=== PATIENT | female | born 1955 | race American Indian/Alaskan Native ===

== ENCOUNTER 2017-09-18 14:36 | Outpatient (CLI) | payer MEDICARE ==
--- NOTE | 2017-09-18 15:29 | XRay Report ---
CHEST 2 VIEWS INDICATION: Cough. COMPARISON: 06/19/2015 FINDINGS: Frontal and lateral chest radiographs demonstrate interval bilateral upper extremity PICC removal. Stable cholecystectomy clips. Normal cardiomediastinal silhouette. Clear lungs. Mild multilevel imaged spinal degenerative changes with suspected sickle cell changes along the spine and bilateral humeral heads. CONCLUSION: No acute chest process in this patient with sickle cell suspected, as described. Please correlate. Thank you for the opportunity to participate in this patient's care.
== END 2017-09-18 14:37 | disposition home or self-care (01) ==
LOC: XRAY 14:36
PROVIDERS: ATTEND Internal Medicine Hematology & Oncology
DX: R05 Cough (principal); M47.894 Other spondylosis, thoracic region; E78.00 Pure hypercholesterolemia, unspecified; D64.9 Anemia, unspecified; Z90.49 Acquired absence of other specified parts of digestive tract; Z98.890 Other specified postprocedural states
CPT/HCPCS: 71046

== ENCOUNTER 2017-09-21 09:53 | Inpatient (IN) | payer MEDICARE ==
[2017-09-21 12:09] LABS: BUN/Creatinine Ratio 16; Blood Urea Nitrogen 13 mg/dL (7-17); Calcium 10.8 mg/dL (8.4-10.2); Hemolysis Index 66
[2017-09-21 14:07] LABS: Hematocrit 23.6 % (30.3-42.9); Hemoglobin 7.8 gm/dl (10.1-14.3); Mean Corpuscular HGB Conc 33 % (30-34); Mean Corpuscular Hemoglobin 27 pg (28-32); Mean Corpuscular Volume 83 fl (79-97); Platelet Count 437 K/mm3 (140-440); Red Blood Count 2.84 M/mm3 (3.65-5.03); Red Cell Distribution Width 17.8 % (13.2-15.2)
[2017-09-21 15:22] LABS: Band Neutrophils # (Manual) 0.4 K/mm3; Total Cells Counted 100
[2017-09-21 15:23] LABS: Hypochromasia 1+; Platelet Estimate Consistent w Auto; Sickle Cells 1+; Target Cells 1+
[2017-09-21] MEDS ORDERED: DILAUDID IV ONE (19:36)
[2017-09-21] MEDS ORDERED: TORADOL IV ONE (19:36)
[2017-09-21] MEDS ORDERED: ZOFRAN IV ONE (19:36)
[2017-09-21] MEDS: D5NS 0.2% 1,000 ML IV SCH (20:18)
--- NOTE | 2017-09-21 20:41 | Emergency Department Report ---
ED General Adult HPI - General Chief complaint: Sickle Cell Crisis Stated complaint: SICKLE CELL Time Seen by Provider: 09/21/17 19:30 Source: patient Mode of arrival: Wheelchair Limitations: No Limitations - History of Present Illness Initial comments: 62-year-old female with a past medical history of sickle cell SS, previous pulmonary embolism, previous splenectomy and cholecystectomy presents still complains of pain from her neck down to her spine in the started acutely at 4 AM. Pain is 10/10 intensity and constant. No aggravating or relieving factors. No complaints of fever, chest pain, shortness of breath, or abdominal pain. Patient admits to noncompliance with Coumadin 1 month because she ran out of the prescription. Recently saw her price analyst Dr. Griffin on October 19. Patient has infrequent sickle cell crisis requiring hospitalizations. She does not have a port. Severity scale (0 -10): 10 - Related Data Home Medications Medication Instructions Recorded Confirmed Last Taken RX: HYDROcodone/APAP 7.5-325 1 tab PO Q4-6H PRN 01/10/14 06/11/15 02/20/15 20:00 [[place] 7.5-325 mg TAB] RX: Warfarin [Coumadin] 7.5 mg PO QDAY 06/09/15 06/09/15 1 Day Ago ~06/08/15 Allergies Allergy/AdvReac Type Severity Reaction Status Date / Time nalbuphine HCl [From Nubain] Allergy Hives Verified 01/11/14 10:50 oak Allergy COUGHING,IT Unverified 09/18/17 14:39 MARCIA LAY ED Review of Systems ROS: Stated complaint: SICKLE CELL Other details as noted in HPI Comment: All other systems reviewed and negative ED Past Medical Hx - Past Medical History Hx Congestive Heart Failure: No Hx Diabetes: No Hx Deep Vein Thrombosis: (Hx PE) Hx Pulmonary Embolism: Yes Hx Sickle Cell Disease: Yes Hx Asthma: No Hx COPD: No Hx Tuberculosis: No Additional medical history: Depression in the past according to old chart - Surgical History Hx Pacemaker: No Hx Internal Defibrillator: No Hx Cholecystectomy: Yes Additional Surgical History: spleenectomy. tubal ligation. left digit amputation. PICC line - Social History Smoking Status: Unknown if ever smoked Substance Use Type: None - Medications Home Medications: Home Medications Medication Instructions Recorded Confirmed Last Taken Type RX: HYDROcodone/APAP 7.5-325 1 tab PO Q4-6H PRN 01/10/14 06/11/15 02/20/15 20: 00 History [[place] 7.5-325 mg TAB] RX: Warfarin [Coumadin] 7.5 mg PO QDAY 06/09/15 06/09/15 1 Day Ago History ~06/08/15 ED Physical Exam - General Limitations: No Limitations - Other Other exam information: General: No limitations, patient is alert in no acute distress Head exam: Atraumatic, normocephalic Eyes exam: Normal appearance ENT: Moist mucous membrane, normal oropharynx Neck exam: Normal inspection, full range of motion, no meningismus midleine Neck tenderness down spine to back Respiratory exam: Clear to auscultation bilateral, no wheezes, rales, crackles Cardiovascular: Normal rate and rhythm, normal heart sounds Abdomen: Soft, nondistended, luq scar, nontender, with normal bowel sounds, no rebound, or guarding Extremity: Full range of motion normal inspection no deformity Back: Normal Inspection, full range of motion, some midline tenderness Neurologic: Alert, oriented x3, cranial nerves intact, no motor or sensory deficit Psychiatric: normal affect, normal mood Skin: Warm, dry, intact ED Course Vital Signs 09/21/17 09/21/17 09/21/17 11:36 16:41 16:45 Temperature 98.2 F Pulse Rate 60 Respiratory 20 Rate Blood Pressure 187/109 120/65 130/55 O2 Sat by Pulse 97 100 Oximetry 09/21/17 09/21/17 09/21/17 16:52 17:00 17:15 Temperature Pulse Rate Respiratory Rate Blood Pressure 124/71 124/71 O2 Sat by Pulse 97 100 100 Oximetry 09/21/17 09/21/17 09/21/17 17:31 17:45 18:01 Temperature Pulse Rate Respiratory Rate Blood Pressure 119/44 119/44 119/44 O2 Sat by Pulse 100 100 100 Oximetry 09/21/17 09/21/17 18:15 18:31 Temperature Pulse Rate Respiratory Rate Blood Pressure 119/44 119/44 O2 Sat by Pulse 100 35 L Oximetry - Consultations Consultation #1: 09/21/17 20:40 case d/w Dr Griffin, will consult ED Medical Decision Making - Lab Data Result diagrams: 09/21/17 14:00 04/02/18 11:42 Lab Results 09/21/17 09/21/17 Range/Units 11:42 14:00 WBC 20.2 H (4.5-11.0) K/mm3 RBC 2.84 L (3.65-5.03) M/mm3 Hgb 7.8 L (10.1-14.3) gm/dl Hct 23.6 L (30.3-42.9) % MCV 83 (79-97) fl MCH 27 L (28-32) pg MCHC 33 (30-34) % RDW 17.8 H (13.2-15.2) % Plt Count 437 (140-440) K/mm3 Add Manual Diff Complete Total Counted 100 Seg Neuts % (Manual) 79.0 H (40.0-70.0) % Band Neutrophils % 2.0 % Lymphocytes % (Manual) 6.0 L (13.4-35.0) % Reactive Lymphs % (Man) 0 % Monocytes % (Manual) 10.0 H (0.0-7.3) % Eosinophils % (Manual) 2.0 (0.0-4.3) % Basophils % (Manual) 1.0 (0.0-1.8) % Metamyelocytes % 0 % Myelocytes % 0 % Promyelocytes % 0 % Blast Cells % 0 % Nucleated RBC % 7.0 H (0.0-0.9) % Seg Neutrophils # Man 15.5 H (1.8-7.7) K/mm3 Band Neutrophils # 0.4 K/mm3 Lymphocytes # (Manual) 1.2 (1.2-5.4) K/mm3 Abs React Lymphs (Man) 0.0 K/mm3 Monocytes # (Manual) 2.0 H (0.0-0.8) K/mm3 Eosinophils # (Manual) 0.4 (0.0-0.4) K/mm3 Basophils # (Manual) 0.2 H (0.0-0.1) K/mm3 Metamyelocytes # 0.0 K/mm3 Myelocytes # 0.0 K/mm3 Promyelocytes # 0.0 K/mm3 Blast Cells # 0.0 K/mm3 WBC Morphology Not Reportable Hypersegmented Neuts Not Reportable Hyposegmented Neuts Not Reportable Hypogranular Neuts Not Reportable Smudge Cells Not Reportable Toxic Granulation Not Reportable Toxic Vacuolation Not Reportable Dohle Bodies Not Reportable Pelger-Huet Anomaly Not Reportable Josemanuel Rods Not Reportable Platelet Estimate Consistent w auto Clumped Platelets Not Reportable Plt Clumps, EDTA Not Reportable Large Platelets Not Reportable Giant Platelets Not Reportable Platelet Satelliting Not Reportable Plt Morphology Comment Not Reportable RBC Morphology Not Reportable Dimorphic RBCs Not Reportable Polychromasia Not Reportable Hypochromasia 1+ Poikilocytosis Not Reportable Anisocytosis Not Reportable Microcytosis Not Reportable Macrocytosis Not Reportable Spherocytes Not Reportable Pappenheimer Bodies Not Reportable Sickle Cells 1+ Target Cells 1+ Tear Drop Cells Not Reportable Ovalocytes Not Reportable Helmet Cells Not Reportable Maguire-Eagan Bodies Not Reportable Fenton Rings Not Reportable Mcgehee Cells Not Reportable Bite Cells Not Reportable Crenated Cell Not Reportable Elliptocytes Not Reportable Acanthocytes (Spur) Not Reportable Rouleaux Not Reportable Hemoglobin C Crystals Not Reportable Schistocytes Not Reportable Malaria parasites Not Reportable Percent Retic 8.94 H (0.78-2.58) % Nikunj Bodies Not Reportable Hem Pathologist Commnt No Sodium 135 L (137-145) mmol/L Potassium 4.7 (3.6-5.0) mmol/L Chloride 100.4 (98-107) mmol/L Carbon Dioxide 20 L (22-30) mmol/L Anion Gap 19 mmol/L BUN 13 (7-17) mg/dL Creatinine 0.8 (0.7-1.2) mg/dL Estimated GFR > 60 ml/min BUN/Creatinine Ratio 16 % Glucose 119 H (65-100) mg/dL Calcium 10.8 H (8.4-10.2) mg/dL - Medical Decision Making Patient be admitted to hospital for acute sickle cell crisis. Patient has significant leukocytosis but no source of infection identified. Blood cultures pending. She does not report. Case discussed with Dr. Griffin We'll continue to manage pain or hydrate and follow. Patient medicine noncompliance with Coumadin 1 month. IN The ED she is treated with Dilaudid, Zofran, Toradol, and been with improvement in pain. IVF in progress - Differential Diagnosis sickle cell crisis, aplastic crisis, osteomyelitis, anemia, infection Critical Care Time: No Critical care attestation.: If time is entered above; I have spent that time in minutes in the direct care of this critically ill patient, excluding procedure time. ED Disposition Clinical Impression: Sickle cell crisis, Leukocytosis, Sickle cell anemia, Noncompliance with medication regimen Disposition: OP ADMIT IP TO THIS HOSP Is pt being admited?: Yes Condition: Stable Time of Disposition: 20:41 (Dr Mcgarry/hosp)
[2017-09-21] MEDS ORDERED: MILK OF MAGNESIA PO PRN (22:09)
[2017-09-21] MEDS ORDERED: MORPHINE PO PRN (22:09)
[2017-09-21] MEDS ORDERED: DULCOLAX PR PRN (22:09)
[2017-09-21] MEDS ORDERED: BENADRYL PO PRN (22:09)
--- NOTE | 2017-09-21 22:12 | History and Physical Report ---
History of Present Illness Date of examination: 09/21/17 Date of admission: 09/21/17 21:59 History of present illness: 62-year-old woman with a history of sickle cell, pulmonary emboli, depression was brought to the emergency room with complaints of pain from the lower neck and weight onto her tailbone which she is only able to describe, INTENSITY 8/10 , no radiation and she cannot identify exacerbating or factor, relieved with IV pain medication to the emergency room. No fever chills, nausea vomiting Review Of Systems: Constitutional: no weight loss Ears, eyes, nose, mouth and throat: no nasal congestion, no nasal discharge, no sinus pressure, blurry vision, diplopia Neck: No neck pain or rigidity. Cardiovascular: no chest pain, orthopnea, palpitations Respiratory: No shortness of breath, cough Gastrointestinal: no abdominal pain, hematochezia Genitourinary : no hematuria Musculoskeletal: no muscle ache Integumentary: no rash, no pruritis Neurological: no parathesias, focal weakness Endocrine: no cold or heat intolerance, no polyuria or polydipsia Hematologic/Lymphatic: no easy bruising, no easy bleeding, no gland swelling Allergic/Immunologic: no urticaria, no angioedema. PAST MEDICAL HISTORY; depression, sickle cell, pulmonary emboli PAST SURGICAL HISTORY: Cholecystectomy, tubal ligation, splenectomy, left digit amputation SOCIAL HISTORY: Denies local continue current management FAMILY HISTORY: Sickle cell Medications and Allergies Allergies Allergy/AdvReac Type Severity Reaction Status Date / Time nalbuphine HCl [From Nubain] Allergy Hives Verified 01/11/14 10:50 oak Allergy COUGHING,IT Verified 09/21/17 22:48 ROSANNE,SINUS Home Medications Medication Instructions Recorded Confirmed Last Taken Type HYDROcodone/APAP 7.5-325 [[place] 1 tab PO Q4-6H PRN 01/10/14 09/21/17 1 Month Ago History 7.5-325 mg TAB] ~08/21/17 Warfarin [Coumadin] 7.5 mg PO QDAY 06/09/15 09/21/17 1 Month Ago History ~08/21/17 Active Meds: Active Medications Dextrose/Sodium Chloride (D5ns 0.2%) 1,000 mls @ 250 mls/hr IV DIRECT TERESA Last Admin: 09/21/17 20:18 Dose: 250 mls/hr Exam - Physical Exam Narrative exam: Physical exam - Constitutional Vitals: Temp Pulse Resp BP Pulse Ox 98.2 F 86 20 119/61 97 09/21/17 11:36 09/21/17 21:54 09/21/17 11:36 09/21/17 21:45 09/21/17 21:45 Results - Labs CBC & Chem 7: 09/21/17 14:00 09/21/17 11:42 Labs: Abnormal lab results 09/21/17 09/21/17 Range/Units 11:42 14:00 WBC 20.2 H (4.5-11.0) K/mm3 RBC 2.84 L (3.65-5.03) M/mm3 Hgb 7.8 L (10.1-14.3) gm/dl Hct 23.6 L (30.3-42.9) % MCH 27 L (28-32) pg RDW 17.8 H (13.2-15.2) % Seg Neuts % (Manual) 79.0 H (40.0-70.0) % Lymphocytes % (Manual) 6.0 L (13.4-35.0) % Monocytes % (Manual) 10.0 H (0.0-7.3) % Nucleated RBC % 7.0 H (0.0-0.9) % Seg Neutrophils # Man 15.5 H (1.8-7.7) K/mm3 Monocytes # (Manual) 2.0 H (0.0-0.8) K/mm3 Basophils # (Manual) 0.2 H (0.0-0.1) K/mm3 Percent Retic 8.94 H (0.78-2.58) % Sodium 135 L (137-145) mmol/L Carbon Dioxide 20 L (22-30) mmol/L Glucose 119 H (65-100) mg/dL Calcium 10.8 H (8.4-10.2) mg/dL Assessment and Plan Assessment SIRS Sickle cell crisis Pulmonary emboli on Coumadin Depression Plan Admit to medicine I start IV fluids, IV narcotics Patient's Retail Management Trainee is consulted to see the patient DVT prophylaxis, check PT/INR
[2017-09-22] MEDS: cefTRIAXone 1 GM in NACL 0.9% 20 ML IV SCH ×2 (00:06→22:26)
[2017-09-22 00:46] LABS: INR 1.03 (0.87-1.13)
[2017-09-22 00:47] LABS: Partial Thromboplastin Time 30.4 Sec. (24.2-36.6)
[2017-09-22] MEDS: D5NS 0.2% 1,000 ML IV SCH ×4 (01:29→22:25)
[2017-09-22] MEDS: DILAUDID IV PRN ×6 (01:30→22:28)
[2017-09-22] MEDS: TYLENOL PO PRN ×3 (05:02→18:34)
[2017-09-22] MEDS: OxyCONTIN PO SCH ×3 (05:04→22:27)
[2017-09-22 08:02] LABS: Hematocrit 22.8 % (30.3-42.9); Hemoglobin 7.6 gm/dl (10.1-14.3); Mean Corpuscular HGB Conc 34 % (30-34); Mean Corpuscular Hemoglobin 28 pg (28-32); Mean Corpuscular Volume 83 fl (79-97); Platelet Count 405 K/mm3 (140-440); Red Blood Count 2.75 M/mm3 (3.65-5.03); Red Cell Distribution Width 17.3 % (13.2-15.2)
[2017-09-22 08:57] LABS: Band Neutrophils # (Manual) 0.5 K/mm3; Basophils % (Manual) 0 % (0.0-1.8); Eosinophils % (Manual) 0 % (0.0-4.3); Total Cells Counted 100
[2017-09-22 08:58] LABS: Anisocytosis 1+; Hypochromasia 1+; Ovalocytes 1+; Poikilocytosis 1+; Sickle Cells 1+; Stomatocytes 1+; Target Cells 1+; Tear Drop Cells 2+
[2017-09-22] MEDS: THERAGRAN Tab PO SCH (09:29)
[2017-09-22] MEDS: FOLVITE PO SCH (09:29)
[2017-09-22 09:41] LABS: BUN/Creatinine Ratio 14; Blood Urea Nitrogen 11 mg/dL (7-17); Hemolysis Index 9
[2017-09-22] MEDS: COUMADIN PO SCH (16:41)
--- NOTE | 2017-09-22 19:03 | Progress Note ---
Assessment and Plan SIRS, likely from sickle cell crisis Sickle cell crisis, monitor H&H Pulmonary emboli on Coumadin Depression, stable Plan: Continue aggressive hydration with IV fluids, IV narcotics, consulted insurance case manager Monitor H&H, PT INR, reticulocyte count and LDH Continue to provide supportive care Physical exam: General appearance: Present: mild distress - EENT Eyes: Present: PERRL ENT: hearing intact, clear oral mucosa - Neck Neck: Present: supple, normal ROM - Respiratory Respiratory: bilateral: diminished - Cardiovascular Heart Sounds: Present: S1 & S2. Absent: rub, click - Extremities Extremities: pulses symmetrical, No edema Peripheral Pulses: within normal limits - Abdominal General gastrointestinal: Present: soft, non-tender, non-distended, normal bowel sounds - Integumentary Integumentary: Present: clear, warm, dry - Musculoskeletal Musculoskeletal: gait normal, strength equal bilaterally - Psychiatric Psychiatric: appropriate mood/affect, intact judgment & insight - Neurologic Neurologic: CNII-XII intact, moves all extremities Subjective Date of service: 09/22/17 Interval history: Patient seen and examined. Medical records and medication list reviewed. No acute event overnight noted by the RN. Patient denies any chest pain or difficulty breathing. Patient is tolerating diet but poor appetite. Complaints of severe back pain hip pain and leg pain Discussed plan of care at bedside with patient. Objective - Constitutional Vitals: Vital Signs - 12hr 09/22/17 09/22/17 07:44 12:59 Temperature 101.2 F H 100.3 F H Pulse Rate 97 H Respiratory 14 18 Rate Blood Pressure 101/54 107/37 [Left] O2 Sat by Pulse 97 94 Oximetry - Labs CBC & Chem 7: 09/23/17 12:47 09/22/17 07:17 Labs: Abnormal lab results 09/21/17 09/22/17 09/22/17 Range/Units 14:00 07:17 07:17 WBC 20.2 H 24.4 H (4.5-11.0) K/mm3 RBC 2.84 L 2.75 L (3.65-5.03) M/mm3 Hgb 7.8 L 7.6 L (10.1-14.3) gm/dl Hct 23.6 L 22.8 L (30.3-42.9) % MCH 27 L (28-32) pg RDW 17.8 H 17.3 H (13.2-15.2) % Seg Neuts % (Manual) 79.0 H 89.0 H (40.0-70.0) % Lymphocytes % (Manual) 6.0 L 5.0 L (13.4-35.0) % Monocytes % (Manual) 10.0 H (0.0-7.3) % Nucleated RBC % 7.0 H 11.0 H (0.0-0.9) % Seg Neutrophils # Man 15.5 H 21.7 H (1.8-7.7) K/mm3 Monocytes # (Manual) 2.0 H 1.0 H (0.0-0.8) K/mm3 Basophils # (Manual) 0.2 H (0.0-0.1) K/mm3 Percent Retic 8.94 H 8.51 H (0.78-2.58) % Sodium (137-145) mmol/L Carbon Dioxide (22-30) mmol/L Glucose (65-100) mg/dL Lactate Dehydrogenase 613 H (91-180) units/L 09/22/17 Range/Units 07:17 WBC (4.5-11.0) K/mm3 RBC (3.65-5.03) M/mm3 Hgb (10.1-14.3) gm/dl Hct (30.3-42.9) % MCH (28-32) pg RDW (13.2-15.2) % Seg Neuts % (Manual) (40.0-70.0) % Lymphocytes % (Manual) (13.4-35.0) % Monocytes % (Manual) (0.0-7.3) % Nucleated RBC % (0.0-0.9) % Seg Neutrophils # Man (1.8-7.7) K/mm3 Monocytes # (Manual) (0.0-0.8) K/mm3 Basophils # (Manual) (0.0-0.1) K/mm3 Percent Retic (0.78-2.58) % Sodium 134 L (137-145) mmol/L Carbon Dioxide 21 L (22-30) mmol/L Glucose 113 H (65-100) mg/dL Lactate Dehydrogenase (91-180) units/L
--- NOTE | 2017-09-22 22:04 | Consultation ---
History of Present Illness - Reason for Consult Consult date: 09/22/17 SCD/pain crisis. Requesting physician: MEME GANN - History of Present Illness Thank you for this consult, patient seen/examined, slight lethargic, record reviewed. Patient seen last thursday in the office, and sent home with oral abx, and to do CXR. she did not want an admission at that time, but presented to the ER, 3days later, and admitted for sxs management. I had spoken to DR Gann in the ER last night, and gave recommendations/, for cultures, IV ABX, until culture resulted.By tomorrow, her IV pain meds could be reduced, as patient does not tolerate pain meds well.She will be ok with Dilaudid 1mg instead.. Past History Past Medical History: anemia, pulmonary embolism Medications and Allergies Allergies Allergy/AdvReac Type Severity Reaction Status Date / Time nalbuphine HCl [From Nubain] Allergy Hives Verified 01/11/14 10:50 oak Allergy COUGHING,IT Verified 09/21/17 22:48 ROSANNE,SINUS Home Medications Medication Instructions Recorded Confirmed Last Taken Type HYDROcodone/APAP 7.5-325 [[place] 1 tab PO Q4-6H PRN 01/10/14 09/21/17 1 Month Ago History 7.5-325 mg TAB] ~08/21/17 Warfarin [Coumadin] 7.5 mg PO QDAY 06/09/15 09/21/17 1 Month Ago History ~08/21/17 Active Meds: Active Medications Acetaminophen (Tylenol) 650 mg PO Q4H PRN PRN Reason: Pain, Mild (1-3) Last Admin: 09/22/17 18:34 Dose: 650 mg Bisacodyl (Dulcolax) 10 mg DC QDAY PRN PRN Reason: Constipation unrelieved by MOM Diphenhydramine HCl (Benadryl) 25 mg PO Q6H PRN PRN Reason: Itching Folic Acid (Folvite) 1 mg PO QDAY TERESA Last Admin: 09/22/17 09:29 Dose: 1 mg Hydromorphone HCl (Dilaudid) 2 mg IV Q2H PRN PRN Reason: Pain , Severe (7-10) Last Admin: 09/22/17 16:36 Dose: 2 mg Dextrose/Sodium Chloride (D5ns 0.2%) 1,000 mls @ 250 mls/hr IV DIRECT [facility] Last Admin: 09/22/17 13:03 Dose: 250 mls/hr Ceftriaxone Sodium 1 gm/ (Sodium Chloride) 20 mls @ 2 mls/min IV Q24HR@2200 [facility] Last Admin: 09/22/17 00:06 Dose: 2 mls/min Magnesium Hydroxide (Milk Of Magnesia) 30 ml PO Q4H PRN PRN Reason: Constipation Morphine Sulfate (Morphine) 15 mg PO Q4H PRN PRN Reason: Pain, Moderate (4-6) Multivitamins (Theragran Tab) 1 each PO QDAY [facility] Last Admin: 09/22/17 09:29 Dose: 1 each Ondansetron HCl (Zofran) 4 mg IV Q8H PRN PRN Reason: Nausea And Vomiting Oxycodone HCl (Oxycontin) 20 mg PO Q8HR [facility] Last Admin: 09/22/17 14:30 Dose: Not Given Senna (Senokot) 17.2 mg PO QHS [facility] Warfarin Sodium (Coumadin) 7.5 mg PO QDAY@1700 [facility]; Protocol Last Admin: 09/22/17 16:41 Dose: 7.5 mg Review of Systems Constitutional: fatigue, weakness Breasts: deferred Exam - Constitutional Vitals: Temp Pulse Resp BP Pulse Ox 100.2 F H 101 H 16 103/49 95 09/22/17 19:34 09/22/17 19:34 09/22/17 19:34 09/22/17 19:34 09/22/17 20:26 General appearance: Present: mild distress - EENT Eyes: Present: PERRL ENT: hearing intact, clear oral mucosa - Neck Neck: Present: supple, normal ROM - Respiratory Respiratory: bilateral: diminished - Cardiovascular Heart Sounds: Present: S1 & S2. Absent: rub, click - Extremities Extremities: pulses symmetrical, No edema Peripheral Pulses: within normal limits - Abdominal General gastrointestinal: Present: soft, non-tender, non-distended, normal bowel sounds Female genitourinary: Present: deferred - Rectal Rectal Exam: deferred - Integumentary Integumentary: Present: clear, warm, dry - Musculoskeletal Musculoskeletal: gait normal, strength equal bilaterally - Psychiatric Psychiatric: appropriate mood/affect, intact judgment & insight - Neurologic Neurologic: CNII-XII intact, moves all extremities Results - Labs CBC & Chem 7: 09/22/17 07:17 09/22/17 07:17 Labs: Abnormal lab results 09/22/17 09/22/17 09/22/17 Range/Units 07:17 07:17 07:17 WBC 24.4 H (4.5-11.0) K/mm3 RBC 2.75 L (3.65-5.03) M/mm3 Hgb 7.6 L (10.1-14.3) gm/dl Hct 22.8 L (30.3-42.9) % RDW 17.3 H (13.2-15.2) % Seg Neuts % (Manual) 89.0 H (40.0-70.0) % Lymphocytes % (Manual) 5.0 L (13.4-35.0) % Nucleated RBC % 11.0 H (0.0-0.9) % Seg Neutrophils # Man 21.7 H (1.8-7.7) K/mm3 Monocytes # (Manual) 1.0 H (0.0-0.8) K/mm3 Percent Retic 8.51 H (0.78-2.58) % Sodium 134 L (137-145) mmol/L Carbon Dioxide 21 L (22-30) mmol/L Glucose 113 H (65-100) mg/dL Lactate Dehydrogenase 613 H (91-180) units/L Assessment and Plan - Patient Problems (1) Leukocytosis Current Visit: Yes Status: Acute Plan to address problem: w/up in progress. (2) Noncompliance with medication regimen Current Visit: Yes Status: Acute Plan to address problem: i have d/w patient in the office about her gross non compliances. (3) Sickle cell crisis Current Visit: Yes Status: Acute Plan to address problem: pain control, hydration. (4) Sickle cell anemia Current Visit: Yes Status: Chronic Plan to address problem: monitor labs.
[2017-09-22] MEDS ORDERED: ROCEPHIN/NS 1 GM/50 ML 1 GM/50 ML BAG IV SCH (22:09)
[2017-09-22] MEDS: SENOKOT PO SCH (22:25)
[2017-09-23] MEDS: D5NS 0.2% 1,000 ML IV SCH ×3 (02:40→14:20)
[2017-09-23] MEDS: DILAUDID IV PRN ×3 (07:08→17:07)
[2017-09-23] MEDS: OxyCONTIN PO SCH ×2 (07:20→14:20)
[2017-09-23] MEDS: THERAGRAN Tab PO SCH (09:29)
[2017-09-23] MEDS: ZOFRAN IV PRN (09:30)
[2017-09-23] MEDS: FOLVITE PO SCH (09:31)
[2017-09-23 13:36] LABS: Hematocrit 22.1 % (30.3-42.9); Hemoglobin 7.3 gm/dl (10.1-14.3); Mean Corpuscular HGB Conc 33 % (30-34); Mean Corpuscular Hemoglobin 28 pg (28-32); Mean Corpuscular Volume 83 fl (79-97); Platelet Count 379 K/mm3 (140-440); Red Blood Count 2.65 M/mm3 (3.65-5.03); Red Cell Distribution Width 17.9 % (13.2-15.2)
[2017-09-23 13:40] LABS: INR 1.2 (0.87-1.13)
[2017-09-23 14:29] LABS: Band Neutrophils # (Manual) 0.2 K/mm3; Basophils % (Manual) 0 % (0.0-1.8); Total Cells Counted 100
[2017-09-23 14:30] LABS: Anisocytosis 2+
[2017-09-23 14:31] LABS: Poikilocytosis 2+; Sickle Cells 1+
[2017-09-23 14:32] LABS: Helmet Cells Rare; Target Cells 1+
[2017-09-23 14:33] LABS: Ovalocytes 1+; Tear Drop Cells Few
[2017-09-23 14:34] LABS: Platelet Estimate Cons; Stomatocytes Few
[2017-09-23] MEDS: COUMADIN PO SCH (17:05)
[2017-09-23] MEDS: TYLENOL PO PRN (17:06)
--- NOTE | 2017-09-23 17:28 | Progress Note ---
Assessment and Plan Sepsis, likely from b/l PNA, POA Sickle cell crisis, monitor H&H Acute b/l PNA likely CA, POA Pulmonary emboli on Coumadin Depression, stable Plan: Continue aggressive hydration with IV fluids, IV narcotics, consulted zone supervisor firearms Monitor H&H, PT INR, reticulocyte count and LDH Continue to provide supportive care, cont abx Chest x-ray showed b.l infiltrates Physical exam: General appearance: Present: mild distress - EENT Eyes: Present: PERRL ENT: hearing intact, clear oral mucosa - Neck Neck: Present: supple, normal ROM - Respiratory Respiratory: bilateral: diminished - Cardiovascular Heart Sounds: Present: S1 & S2. Absent: rub, click - Extremities Extremities: pulses symmetrical, No edema Peripheral Pulses: within normal limits - Abdominal General gastrointestinal: Present: soft, non-tender, non-distended, normal bowel sounds - Integumentary Integumentary: Present: clear, warm, dry - Musculoskeletal Musculoskeletal: gait normal, strength equal bilaterally - Psychiatric Psychiatric: appropriate mood/affect, intact judgment & insight - Neurologic Neurologic: CNII-XII intact, moves all extremities Subjective Date of service: 09/23/17 Interval history: Patient seen and examined. Medical records and medication list reviewed. No acute event overnight noted by the RN. Patient denies any chest pain or difficulty breathing. Patient is tolerating diet but poor appetite. Complaints of back pain hip pain and leg pain, but improving Discussed plan of care at bedside with patient. Objective - Constitutional Vitals: Vital Signs - 12hr 09/23/17 09/23/17 09/23/17 08:27 11:55 14:56 Temperature 100.2 F H 101.2 F H 101.3 F H Pulse Rate 100 H 98 H 110 H Respiratory 14 16 14 Rate Blood Pressure 108/56 107/63 107/56 [Left] O2 Sat by Pulse 100 98 96 Oximetry - Labs CBC & Chem 7: 09/24/17 11:10 09/22/17 07:17 Labs: Abnormal lab results 09/23/17 09/23/17 09/23/17 Range/Units 09:42 12:47 12:47 WBC 14.9 H (4.5-11.0) K/mm3 RBC 2.65 L (3.65-5.03) M/mm3 Hgb 7.3 L (10.1-14.3) gm/dl Hct 22.1 L (30.3-42.9) % RDW 17.9 H (13.2-15.2) % Seg Neuts % (Manual) 80.0 H (40.0-70.0) % Lymphocytes % (Manual) 9.0 L (13.4-35.0) % Monocytes % (Manual) 8.0 H (0.0-7.3) % Nucleated RBC % 10.0 H (0.0-0.9) % Seg Neutrophils # Man 12.1 H (1.8-7.7) K/mm3 Monocytes # (Manual) 1.2 H (0.0-0.8) K/mm3 Percent Retic 7.22 H (0.78-2.58) % PT 15.9 H (12.2-14.9) Sec. INR 1.20 H (0.87-1.13) Lactate Dehydrogenase 616 H (91-180) units/L
--- NOTE | 2017-09-23 22:52 | XRay Report ---
FINAL REPORT EXAM: XR CHEST 1V AP HISTORY: possible pneumonia TECHNIQUE: Chest AP PRIORS: None. FINDINGS: There is streaky opacity present within the left lower lobe and at the right perihilar region as well as the right lung base. Pulmonary vasculature is unremarkable. Cardiac and mediastinal contours are unremarkable. No evidence for pleural effusion. IMPRESSION: Bilateral lower lobe infiltrate/atelectasis may reflect pneumonia
--- NOTE | 2017-09-23 23:54 | Progress Note ---
Assessment and Plan - Patient Problems (1) Leukocytosis Current Visit: Yes Status: Acute Plan to address problem: w/up in progress. this is probably due to her PNA. (2) Noncompliance with medication regimen Current Visit: Yes Status: Acute Plan to address problem: i have d/w patient in the office about her gross non compliances. (3) Sickle cell crisis Current Visit: Yes Status: Acute Plan to address problem: pain control, hydration. (4) Sickle cell anemia Current Visit: Yes Status: Chronic Plan to address problem: monitor labs. Subjective Date of service: 09/23/17 Interval history: Patient seen/examined, records /labs reviewed, case d/w patient. CXY reveals possible PNA.Patient has lost her IV, and will bneed a picc line as she will needit for very needed tx. Objective - Constitutional Vitals: Vital Signs - 12hr 09/23/17 09/23/17 09/23/17 11:55 14:56 19:22 Temperature 101.2 F H 101.3 F H 98.5 F Pulse Rate 98 H 110 H 97 H Respiratory 16 14 20 Rate Blood Pressure 83/49 Blood Pressure 107/63 107/56 [Left] O2 Sat by Pulse 98 96 78 L Oximetry General appearance: Present: mild distress - EENT Eyes: PERRL, EOM intact ENT: hearing intact, clear oral mucosa Ears: bilateral: normal - Neck Neck: supple, normal ROM - Respiratory Respiratory: bilateral: diminished - Breasts Breasts: deferred - Cardiovascular Rhythm: regular Heart Sounds: Present: S1 & S2. Absent: gallop, rub Extremities: pulses intact, No edema, normal color, Full ROM - Gastrointestinal General gastrointestinal: Present: soft, non-tender, non-distended, normal bowel sounds Rectal Exam: deferred - Genitourinary Female genitourinary: deferred - Integumentary Integumentary: clear, warm, dry - Musculoskeletal Musculoskeletal: 1, strength equal bilaterally - Neurologic Neurologic: moves all extremities - Psychiatric Psychiatric: memory intact, appropriate mood/affect, intact judgment & insight - Labs CBC & Chem 7: 09/23/17 12:47 09/22/17 07:17 Labs: Abnormal lab results 09/23/17 09/23/17 09/23/17 Range/Units 09:42 12:47 12:47 WBC 14.9 H (4.5-11.0) K/mm3 RBC 2.65 L (3.65-5.03) M/mm3 Hgb 7.3 L (10.1-14.3) gm/dl Hct 22.1 L (30.3-42.9) % RDW 17.9 H (13.2-15.2) % Seg Neuts % (Manual) 80.0 H (40.0-70.0) % Lymphocytes % (Manual) 9.0 L (13.4-35.0) % Monocytes % (Manual) 8.0 H (0.0-7.3) % Nucleated RBC % 10.0 H (0.0-0.9) % Seg Neutrophils # Man 12.1 H (1.8-7.7) K/mm3 Monocytes # (Manual) 1.2 H (0.0-0.8) K/mm3 Percent Retic 7.22 H (0.78-2.58) % PT 15.9 H (12.2-14.9) Sec. INR 1.20 H (0.87-1.13) Lactate Dehydrogenase 616 H (91-180) units/L
[2017-09-24] MEDS: SENOKOT PO SCH ×2 (02:04→22:48)
[2017-09-24] MEDS: OxyCONTIN PO SCH ×5 (02:05→23:36)
[2017-09-24] MEDS: TYLENOL PO PRN (02:07)
[2017-09-24] MEDS: cefTRIAXone 1 GM in NACL 0.9% 20 ML IV SCH ×2 (02:09→22:48)
[2017-09-24] MEDS: FOLVITE PO SCH (11:21)
[2017-09-24] MEDS: THERAGRAN Tab PO SCH (11:21)
[2017-09-24 11:22] LABS: Mean Corpuscular HGB Conc 32 % (30-34); Mean Corpuscular Hemoglobin 27 pg (28-32); Mean Corpuscular Volume 83 fl (79-97); Platelet Count 356 K/mm3 (140-440); Red Blood Count 2.27 M/mm3 (3.65-5.03); Red Cell Distribution Width 18.1 % (13.2-15.2)
[2017-09-24] MEDS: DILAUDID IV PRN ×2 (11:22→23:34)
[2017-09-24 11:29] LABS: Hematocrit 18.7 % (30.3-42.9)
[2017-09-24 11:31] LABS: INR 1.86 (0.87-1.13)
[2017-09-24 12:16] LABS: Eosinophils % (Manual) 0 % (0.0-4.3); Total Cells Counted 100
[2017-09-24 12:21] LABS: Anisocytosis 2+; Poikilocytosis 2+
[2017-09-24 12:22] LABS: Ovalocytes 1+; Sickle Cells Few; Stomatocytes Few; Target Cells 2+
[2017-09-24 12:23] LABS: Platelet Estimate Cons; Tear Drop Cells Few
--- NOTE | 2017-09-24 16:34 | Progress Note ---
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 Velázquez before any decision Continue aggressive hydration with IV fluids, IV narcotics, consulted vp [employer] Monitor H&H, PT INR, reticulocyte count and LDH Continue to provide supportive care, cont abx Chest x-ray showed b.l infiltrates Physical exam: General appearance: Present: mild distress - EENT Eyes: Present: PERRL ENT: hearing intact, clear oral mucosa - Neck Neck: Present: supple, normal ROM - Respiratory Respiratory: bilateral: diminished - Cardiovascular Heart Sounds: Present: S1 & S2. Absent: rub, click - Extremities Extremities: pulses symmetrical, No edema Peripheral Pulses: within normal limits - Abdominal General gastrointestinal: Present: soft, non-tender, non-distended, normal bowel sounds - Integumentary Integumentary: Present: clear, warm, dry - Musculoskeletal Musculoskeletal: gait normal, strength equal bilaterally - Psychiatric Psychiatric: appropriate mood/affect, intact judgment & insight - Neurologic Neurologic: CNII-XII intact, moves all extremities Subjective Date of service: 09/24/17 Interval history: Patient seen and examined. Medical records and medication list reviewed. No acute event overnight noted by the RN. Patient denies any chest pain or difficulty breathing. Patient is tolerating diet, Hb dropped to 6.0 today Complaints of back pain hip pain and leg pain, but improving Discussed plan of care at bedside with patient. Objective - Constitutional Vitals: Vital Signs - 12hr 09/24/17 09/24/17 09/24/17 07:54 07:57 15:25 Temperature 98.0 F 100.6 F H Pulse Rate 74 97 H Respiratory 18 18 18 Rate Blood Pressure 96/52 93/52 O2 Sat by Pulse 80 L 88 Oximetry - Labs CBC & Chem 7: 09/24/17 15:00 09/22/17 07:17 Labs: Abnormal lab results 09/24/17 09/24/17 09/24/17 Range/Units 11:10 11:10 11:10 WBC 15.7 H (4.5-11.0) K/mm3 RBC 2.27 L (3.65-5.03) M/mm3 Hgb 6.0 L (10.1-14.3) gm/dl Hct 18.7 L* (30.3-42.9) % MCH 27 L (28-32) pg RDW 18.1 H (13.2-15.2) % Seg Neuts % (Manual) 88.0 H (40.0-70.0) % Lymphocytes % (Manual) 2.0 L (13.4-35.0) % Monocytes % (Manual) 9.0 H (0.0-7.3) % Nucleated RBC % 9.0 H (0.0-0.9) % Seg Neutrophils # Man 13.6 H (1.8-7.7) K/mm3 Lymphocytes # (Manual) 0.3 L (1.2-5.4) K/mm3 Monocytes # (Manual) 1.4 H (0.0-0.8) K/mm3 Basophils # (Manual) 0.2 H (0.0-0.1) K/mm3 Percent Retic 8.51 H (0.78-2.58) % PT 22.6 H (12.2-14.9) Sec. INR 1.86 H (0.87-1.13) Lactate Dehydrogenase 487 H (91-180) units/L 09/24/17 Range/Units 15:00 WBC (4.5-11.0) K/mm3 RBC (3.65-5.03) M/mm3 Hgb 6.0 L (10.1-14.3) gm/dl Hct 18.0 L* (30.3-42.9) % MCH (28-32) pg RDW (13.2-15.2) % Seg Neuts % (Manual) (40.0-70.0) % Lymphocytes % (Manual) (13.4-35.0) % Monocytes % (Manual) (0.0-7.3) % Nucleated RBC % (0.0-0.9) % Seg Neutrophils # Man (1.8-7.7) K/mm3 Lymphocytes # (Manual) (1.2-5.4) K/mm3 Monocytes # (Manual) (0.0-0.8) K/mm3 Basophils # (Manual) (0.0-0.1) K/mm3 Percent Retic (0.78-2.58) % PT (12.2-14.9) Sec. INR (0.87-1.13) Lactate Dehydrogenase (91-180) units/L
[2017-09-24] MEDS: COUMADIN PO SCH (19:18)
--- NOTE | 2017-09-24 23:05 | Progress Note ---
Assessment and Plan - Patient Problems (1) Leukocytosis Current Visit: Yes Status: Acute Plan to address problem: w/up in progress. this is probably due to her PNA. (2) Noncompliance with medication regimen Current Visit: Yes Status: Acute Plan to address problem: i have d/w patient in the office about her gross non compliances. (3) Sickle cell crisis Current Visit: Yes Status: Acute Plan to address problem: pain control, hydration. (4) Sickle cell anemia Current Visit: Yes Status: Chronic Plan to address problem: monitor labs. see notes. Subjective Date of service: 09/24/17 Interval history: Patient seen/examined, records /labs reviewed, case d/w patient. CXY reveals possible PNA.Patient has lost her IV, and will bneed a picc line as she will needit for very needed tx. Patient seen/examined, resting in bed, labs reviewed, HGB 6.0, and will give 1UPRBC. Objective - Constitutional Vitals: Vital Signs - 12hr 09/24/17 09/24/17 15:25 21:08 Temperature 100.6 F H 100.7 F H Pulse Rate 97 H 106 H Respiratory 18 16 Rate Blood Pressure 93/52 104/53 O2 Sat by Pulse 88 87 Oximetry General appearance: Present: mild distress - EENT Eyes: PERRL, EOM intact ENT: hearing intact, clear oral mucosa Ears: bilateral: normal - Neck Neck: supple, normal ROM - Respiratory Respiratory effort: normal Respiratory: bilateral: diminished - Breasts Breasts: deferred - Cardiovascular Rhythm: regular Heart Sounds: Present: S1 & S2. Absent: gallop, rub Extremities: pulses intact, No edema, normal color, Full ROM - Gastrointestinal General gastrointestinal: Present: soft, non-tender, non-distended, normal bowel sounds Rectal Exam: deferred - Genitourinary Female genitourinary: deferred - Integumentary Integumentary: clear, warm, dry - Musculoskeletal Musculoskeletal: 1, strength equal bilaterally - Neurologic Neurologic: moves all extremities - Psychiatric Psychiatric: memory intact, appropriate mood/affect, intact judgment & insight - Labs CBC & Chem 7: 09/24/17 15:00 09/22/17 07:17 Labs: Abnormal lab results 09/24/17 09/24/17 09/24/17 Range/Units 11:10 11:10 11:10 WBC 15.7 H (4.5-11.0) K/mm3 RBC 2.27 L (3.65-5.03) M/mm3 Hgb 6.0 L (10.1-14.3) gm/dl Hct 18.7 L* (30.3-42.9) % MCH 27 L (28-32) pg RDW 18.1 H (13.2-15.2) % Seg Neuts % (Manual) 88.0 H (40.0-70.0) % Lymphocytes % (Manual) 2.0 L (13.4-35.0) % Monocytes % (Manual) 9.0 H (0.0-7.3) % Nucleated RBC % 9.0 H (0.0-0.9) % Seg Neutrophils # Man 13.6 H (1.8-7.7) K/mm3 Lymphocytes # (Manual) 0.3 L (1.2-5.4) K/mm3 Monocytes # (Manual) 1.4 H (0.0-0.8) K/mm3 Basophils # (Manual) 0.2 H (0.0-0.1) K/mm3 Percent Retic 8.51 H (0.78-2.58) % PT 22.6 H (12.2-14.9) Sec. INR 1.86 H (0.87-1.13) Lactate Dehydrogenase 487 H (91-180) units/L 09/24/17 Range/Units 15:00 WBC (4.5-11.0) K/mm3 RBC (3.65-5.03) M/mm3 Hgb 6.0 L (10.1-14.3) gm/dl Hct 18.0 L* (30.3-42.9) % MCH (28-32) pg RDW (13.2-15.2) % Seg Neuts % (Manual) (40.0-70.0) % Lymphocytes % (Manual) (13.4-35.0) % Monocytes % (Manual) (0.0-7.3) % Nucleated RBC % (0.0-0.9) % Seg Neutrophils # Man (1.8-7.7) K/mm3 Lymphocytes # (Manual) (1.2-5.4) K/mm3 Monocytes # (Manual) (0.0-0.8) K/mm3 Basophils # (Manual) (0.0-0.1) K/mm3 Percent Retic (0.78-2.58) % PT (12.2-14.9) Sec. INR (0.87-1.13) Lactate Dehydrogenase (91-180) units/L
[2017-09-24] MEDS ORDERED: NACL 0.9% 500 ML 500 ML IV ONE (23:06)
[2017-09-24] MEDS: ZOFRAN IV PRN (23:34)
[2017-09-24] MEDS: D5NS 0.2% 1,000 ML IV SCH (23:35)
[2017-09-25] MEDS: OxyCONTIN PO SCH ×3 (06:56→22:12)
[2017-09-25] MEDS: D5NS 0.2% 1,000 ML IV SCH ×2 (08:45→18:20)
[2017-09-25] MEDS: THERAGRAN Tab PO SCH ×2 (10:46→10:53)
[2017-09-25] MEDS: FOLVITE PO SCH ×2 (10:46→10:53)
[2017-09-25] MEDS: ZOFRAN IV PRN (12:26)
[2017-09-25] MEDS: DILAUDID IV PRN ×3 (12:27→23:34)
[2017-09-25] MEDS: ZITHROMAX 500 MG in NACL 0.9% 250ML 250 ML IV SCH (12:27)
[2017-09-25] MEDS: cefTRIAXone 1 GM in NACL 0.9% 20 ML IV SCH ×3 (12:28→22:11)
--- NOTE | 2017-09-25 15:35 | Progress Note ---
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 Sepsis, likely from b/l PNA, POA Febrile illness, likley from sepsis Sickle cell crisis, monitor H&H Acute b/l PNA likely CA, POA Pulmonary emboli on Coumadin Depression, stable Plan: s/p 1 unit PRBC transfusion, Continue aggressive hydration with IV fluids, IV narcotics, consulted software quality manager Monitor H&H, PT INR, reticulocyte count and LDH Continue to provide supportive care, cont abx Chest x-ray showed b.l infiltrates, obtain blood cx and UA Physical exam: General appearance: Present: mild distress - EENT Eyes: Present: PERRL ENT: hearing intact, clear oral mucosa - Neck Neck: Present: supple, normal ROM - Respiratory Respiratory: bilateral: diminished - Cardiovascular Heart Sounds: Present: S1 & S2. Absent: rub, click - Extremities Extremities: pulses symmetrical, No edema Peripheral Pulses: within normal limits - Abdominal General gastrointestinal: Present: soft, non-tender, non-distended, normal bowel sounds - Integumentary Integumentary: Present: clear, warm, dry - Musculoskeletal Musculoskeletal: gait normal, strength equal bilaterally - Psychiatric Psychiatric: appropriate mood/affect, intact judgment & insight - Neurologic Neurologic: CNII-XII intact, moves all extremities Subjective Date of service: 09/25/17 Interval history: Patient seen and examined. Medical records and medication list reviewed. No acute event overnight noted by the RN. Patient denies any chest pain or difficulty breathing. Patient is tolerating diet, s/p 1 unit PRBC transfusion spiked fever this am, worried about iron overload Objective - Constitutional Vitals: Vital Signs - 12hr 09/25/17 08:27 Temperature 101.0 F H Respiratory 12 Rate Blood Pressure 92/49 - Labs CBC & Chem 7: 09/24/17 15:00 09/22/17 07:17
[2017-09-25 16:26] LABS: INR 2.69 (0.87-1.13)
[2017-09-25] MEDS: COUMADIN PO SCH (17:00)
--- NOTE | 2017-09-25 21:08 | Progress Note ---
Assessment and Plan - Patient Problems (1) Leukocytosis Current Visit: Yes Status: Acute Plan to address problem: w/up in progress. this is probably due to her PNA. (2) Noncompliance with medication regimen Current Visit: Yes Status: Acute Plan to address problem: i have d/w patient in the office about her gross non compliances. (3) Sickle cell crisis Current Visit: Yes Status: Acute Plan to address problem: pain control, hydration. (4) Sickle cell anemia Current Visit: Yes Status: Chronic Plan to address problem: monitor labs. see notes. (5) Depressed Current Visit: Yes Status: Acute Plan to address problem: see notes. Subjective Date of service: 09/25/17 Interval history: Patient seen/examined, records /labs reviewed, case d/w patient. CXY reveals possible PNA.Patient has lost her IV, and will bneed a picc line as she will needit for very needed tx. Patient seen/examined, resting in bed, labs reviewed, HGB 6.0, and will give 1UPRBC. Patient seen/examined,resting in bed, I have sensed s slight depression, we have talked about it, she will not take any thing at this time.Still awaiting blood fot transfusion. Objective - Constitutional General appearance: Present: mild distress - EENT Eyes: PERRL, EOM intact ENT: hearing intact, clear oral mucosa Ears: bilateral: normal - Neck Neck: supple, normal ROM - Respiratory Respiratory: bilateral: diminished - Breasts Breasts: deferred - Cardiovascular Rhythm: regular Heart Sounds: Present: S1 & S2. Absent: gallop, rub Extremities: pulses intact, No edema, normal color, Full ROM - Gastrointestinal General gastrointestinal: Present: soft, non-tender, non-distended, normal bowel sounds Rectal Exam: deferred - Genitourinary Female genitourinary: deferred - Integumentary Integumentary: clear, warm, dry - Musculoskeletal Musculoskeletal: 1, strength equal bilaterally - Neurologic Neurologic: moves all extremities - Psychiatric Psychiatric: memory intact, appropriate mood/affect, intact judgment & insight - Labs CBC & Chem 7: 09/24/17 15:00 09/22/17 07:17 Labs: Abnormal lab results 09/25/17 09/25/17 Range/Units 15:50 15:55 PT 30.4 H (12.2-14.9) Sec. INR 2.69 H (0.87-1.13) Crossmatch See Detail
[2017-09-25] MEDS: SENOKOT PO SCH (23:00)
[2017-09-26] MEDS: D5NS 0.2% 1,000 ML IV SCH ×3 (02:43→22:32)
[2017-09-26] MEDS: OxyCONTIN PO SCH ×3 (06:38→22:33)
--- NOTE | 2017-09-26 10:58 | Progress Note ---
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 Sepsis, likely from b/l PNA, POA Febrile illness, likley from sepsis Sickle cell crisis, monitor H&H Acute b/l PNA likely CA, POA Pulmonary emboli on Coumadin Depression, stable Plan: Transfuse 1 unit PRBC transfusion, Continue aggressive hydration with IV fluids, IV narcotics, consulted janitorial supervisor Monitor H&H, PT INR, reticulocyte count and LDH Continue to provide supportive care, cont abx Chest x-ray showed b.l infiltrates, negative blood cx and UA pending refused to be seen by psych or to take any medication for depression Physical exam: General appearance: Present: mild distress - EENT Eyes: Present: PERRL ENT: hearing intact, clear oral mucosa - Neck Neck: Present: supple, normal ROM - Respiratory Respiratory: bilateral: diminished - Cardiovascular Heart Sounds: Present: S1 & S2. Absent: rub, click - Extremities Extremities: pulses symmetrical, No edema Peripheral Pulses: within normal limits - Abdominal General gastrointestinal: Present: soft, non-tender, non-distended, normal bowel sounds - Integumentary Integumentary: Present: clear, warm, dry - Musculoskeletal Musculoskeletal: gait normal, strength equal bilaterally - Psychiatric Psychiatric: appropriate mood/affect, intact judgment & insight - Neurologic Neurologic: CNII-XII intact, moves all extremities Subjective Date of service: 09/26/17 Interval history: Patient seen and examined. Medical records and medication list reviewed. No acute event overnight noted by the RN. Patient denies any chest pain or difficulty breathing. Patient is tolerating diet, refused PRBC transfusion, refused lab worried about iron overload Discussed with Dr. Velázquez, she now agrees for transfusion and further lab study Objective - Constitutional Vitals: Vital Signs - 12hr 09/25/17 09/25/17 09/26/17 23:12 23:34 00:04 Temperature Pulse Rate Respiratory 19 18 18 Rate Blood Pressure O2 Sat by Pulse Oximetry 09/26/17 09/26/17 06:38 07:27 Temperature 98.7 F Pulse Rate 96 H Respiratory 18 18 Rate Blood Pressure 93/41 O2 Sat by Pulse 92 Oximetry - Labs CBC & Chem 7: 09/26/17 20:31 09/22/17 07:17 Labs: Abnormal lab results 09/25/17 09/25/17 Range/Units 15:50 15:55 PT 30.4 H (12.2-14.9) Sec. INR 2.69 H (0.87-1.13) Crossmatch See Detail
[2017-09-26] MEDS: ZITHROMAX 500 MG in NACL 0.9% 250ML 250 ML IV SCH (11:00)
[2017-09-26] MEDS: cefTRIAXone 1 GM in NACL 0.9% 20 ML IV SCH ×2 (11:46→22:56)
[2017-09-26] MEDS: THERAGRAN Tab PO SCH (11:46)
[2017-09-26] MEDS: FOLVITE PO SCH (11:46)
[2017-09-26] MEDS ORDERED: NACL 0.9% 500 ML 500 ML ONE (15:10)
--- NOTE | 2017-09-26 15:46 | Progress Note ---
Assessment and Plan - Patient Problems (1) Leukocytosis Current Visit: Yes Status: Acute Plan to address problem: w/up in progress. this is probably due to her PNA. (2) Noncompliance with medication regimen Current Visit: Yes Status: Acute Plan to address problem: i have d/w patient in the office about her gross non compliances. (3) Sickle cell crisis Current Visit: Yes Status: Acute Plan to address problem: pain control, hydration. (4) Sickle cell anemia Current Visit: Yes Status: Chronic Plan to address problem: monitor labs. see notes. (5) Depressed Current Visit: Yes Status: Acute Plan to address problem: see notes. Subjective Date of service: 09/26/17 Interval history: Patient seen/examined, records /labs reviewed, case d/w patient. CXY reveals possible PNA.Patient has lost her IV, and will bneed a picc line as she will needit for very needed tx. Patient seen/examined, resting in bed, labs reviewed, HGB 6.0, and will give 1UPRBC. Patient seen/examined,resting in bed, I have sensed s slight depression, we have talked about it, she will not take any thing at this time.Still awaiting blood fot transfusion. patient seen/examined, resting in bed, she is very paranoid/ depressed. i have spoken to the patient at [facility], and to the family, and to the hospital staff. i had to be in the room before she could take the blood, and abx. i will put her on anti depressant. Objective - Constitutional Vitals: Vital Signs - 12hr 09/26/17 09/26/17 09/26/17 06:38 07:27 13:22 Temperature 98.7 F 99.8 F H Pulse Rate 96 H 105 H Respiratory 18 18 20 Rate Blood Pressure 93/41 Blood Pressure [Left] O2 Sat by Pulse 92 96 Oximetry 09/26/17 09/26/17 13:29 15:18 Temperature 99.8 F H Pulse Rate 100 H Respiratory 18 Rate Blood Pressure Blood Pressure 92/56 98/54 [Left] O2 Sat by Pulse 100 Oximetry General appearance: Present: mild distress, well-nourished - EENT Eyes: PERRL, EOM intact ENT: hearing intact, clear oral mucosa Ears: bilateral: normal - Neck Neck: supple, normal ROM - Respiratory Respiratory: bilateral: diminished - Breasts Breasts: deferred - Cardiovascular Rhythm: regular Heart Sounds: Present: S1 & S2. Absent: gallop, rub Extremities: pulses intact, No edema, normal color, Full ROM - Gastrointestinal General gastrointestinal: Present: soft, non-tender, non-distended, normal bowel sounds Rectal Exam: deferred - Genitourinary Female genitourinary: deferred - Integumentary Integumentary: clear, warm, dry - Musculoskeletal Musculoskeletal: 1, strength equal bilaterally - Neurologic Neurologic: moves all extremities - Psychiatric Psychiatric: memory intact, appropriate mood/affect, intact judgment & insight - Labs CBC & Chem 7: 09/24/17 15:00 09/22/17 07:17 Labs: Abnormal lab results 09/25/17 09/25/17 Range/Units 15:50 15:55 PT 30.4 H (12.2-14.9) Sec. INR 2.69 H (0.87-1.13) Crossmatch See Detail
[2017-09-26] MEDS: TYLENOL PO PRN (15:50)
[2017-09-26] MEDS ORDERED: NACL 0.9% 500 ML 500 ML IV ONE ×2 (16:00→21:34)
[2017-09-26 16:05] LABS: Bilirubin,Urine NEG (Negative); Blood,Urine NEG (Negative); Color,Urine Yellow (Yellow); Protein,Urine <15 mg/dL mg/dL (Negative); Urobilinogen,Urine < 2.0 mg/dL (<2.0)
[2017-09-26] MEDS ORDERED: COUMADIN PO SCH (17:00)
[2017-09-26 20:56] LABS: Hemoglobin 6.6 gm/dl (10.1-14.3)
[2017-09-26 21:05] LABS: Hematocrit 19.7 % (30.3-42.9)
[2017-09-26 21:24] LABS: INR 3.62 (0.87-1.13)
[2017-09-26] MEDS: SENOKOT PO SCH (22:50)
[2017-09-27] MEDS: OxyCONTIN PO SCH ×3 (06:41→22:17)
[2017-09-27 10:57] LABS: INR 3.09 (0.87-1.13)
[2017-09-27] MEDS: cefTRIAXone 1 GM in NACL 0.9% 20 ML IV SCH ×2 (11:56→22:14)
[2017-09-27] MEDS: THERAGRAN Tab PO SCH (11:57)
[2017-09-27] MEDS: ZITHROMAX PO SCH (11:57)
[2017-09-27] MEDS: FOLVITE PO SCH (11:57)
--- NOTE | 2017-09-27 14:09 | Progress Note ---
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 Sepsis, likely from b/l PNA, POA Febrile illness, likley from sepsis Sickle cell crisis, monitor H&H Acute b/l PNA likely CA, POA Pulmonary emboli on Coumadin Depression, stable Plan: s/p 1 unit PRBC transfusion, refuse any further transfusion Continue aggressive hydration with IV fluids, IV narcotics, consulted projection camera operator Monitor H&H, PT INR, reticulocyte count and LDH Continue to provide supportive care, cont abx Chest x-ray showed b.l infiltrates, negative blood cx and UA pending refused to be seen by psych or to take any medication for depression disposition: when clears by hematology Physical exam: General appearance: Present: mild distress - EENT Eyes: Present: PERRL ENT: hearing intact, clear oral mucosa - Neck Neck: Present: supple, normal ROM - Respiratory Respiratory: bilateral: diminished - Cardiovascular Heart Sounds: Present: S1 & S2. Absent: rub, click - Extremities Extremities: pulses symmetrical, No edema Peripheral Pulses: within normal limits - Abdominal General gastrointestinal: Present: soft, non-tender, non-distended, normal bowel sounds - Integumentary Integumentary: Present: clear, warm, dry - Musculoskeletal Musculoskeletal: gait normal, strength equal bilaterally - Psychiatric Psychiatric: appropriate mood/affect, intact judgment & insight - Neurologic Neurologic: CNII-XII intact, moves all extremities Subjective Date of service: 09/27/17 Interval history: Patient seen and examined. Medical records and medication list reviewed. No acute event overnight noted by the RN. s/p transfusion one unit PRBC yesterday Hb 6.6, does not want any further transfusion Objective - Constitutional Vitals: Vital Signs - 12hr 09/27/17 09/27/17 09/27/17 06:41 07:41 08:02 Temperature 100.1 F H Pulse Rate 98 H Respiratory 18 18 14 Rate Blood Pressure 100/56 O2 Sat by Pulse 86 Oximetry 09/27/17 09/27/17 09/27/17 08:08 12:42 13:46 Temperature 99.9 F H Pulse Rate 86 Respiratory 18 16 Rate Blood Pressure 95/52 O2 Sat by Pulse 96 92 Oximetry - Labs CBC & Chem 7: 09/26/17 20:31 09/22/17 07:17 Labs: Abnormal lab results 09/25/17 09/26/17 09/26/17 Range/Units 15:50 20:31 20:31 Hgb 6.6 L (10.1-14.3) gm/dl Hct 19.7 L* (30.3-42.9) % PT 38.7 H (12.2-14.9) Sec. INR 3.62 H (0.87-1.13) Ferritin (13.0-400.0) ng/mL Crossmatch See Detail 09/26/17 09/27/17 Range/Units 20:31 09:14 Hgb (10.1-14.3) gm/dl Hct (30.3-42.9) % PT 34.0 H (12.2-14.9) Sec. INR 3.09 H (0.87-1.13) Ferritin 7441.0 H (13.0-400.0) ng/mL Crossmatch
[2017-09-27] MEDS ORDERED: COUMADIN PO SCH (17:00)
[2017-09-27] MEDS: SENOKOT PO SCH (22:15)
--- NOTE | 2017-09-27 22:50 | Progress Note ---
Assessment and Plan - Patient Problems (1) Leukocytosis Current Visit: Yes Status: Acute Plan to address problem: w/up in progress. this is probably due to her PNA. (2) Noncompliance with medication regimen Current Visit: Yes Status: Acute Plan to address problem: i have d/w patient in the office about her gross non compliances. see notes. (3) Sickle cell crisis Current Visit: Yes Status: Acute Plan to address problem: pain control, hydration. (4) Sickle cell anemia Current Visit: Yes Status: Chronic Plan to address problem: monitor labs. see notes. (5) Depressed Current Visit: Yes Status: Acute Plan to address problem: see notes. patient not wanting any intervention. Subjective Date of service: 09/27/17 Interval history: Patient seen/examined, records /labs reviewed, case d/w patient. CXY reveals possible PNA.Patient has lost her IV, and will bneed a picc line as she will needit for very needed tx. Patient seen/examined, resting in bed, labs reviewed, HGB 6.0, and will give 1UPRBC. Patient seen/examined,resting in bed, I have sensed s slight depression, we have talked about it, she will not take any thing at this time.Still awaiting blood fot transfusion. patient seen/examined, resting in bed, she is very paranoid/ depressed. i have spoken to the patient at [facility], and to the family, and to the hospital staff. i had to be in the room before she could take the blood, and abx. i will put her on anti depressant. Patient seen, sleepy, she had refused the 2nd unit of blood, as per the nurse, not allowing lab draws today. Disposition is as per you,with abx for home use. Objective - Constitutional Vitals: Vital Signs - 12hr 09/27/17 09/27/17 09/27/17 12:00 12:42 13:46 Temperature 99.9 F H Pulse Rate 86 Pulse Rate [ 98 H Apical] Respiratory 14 18 16 Rate Blood Pressure 95/52 O2 Sat by Pulse 92 Oximetry 09/27/17 09/27/17 15:15 15:22 Temperature 99.4 F Pulse Rate 86 Pulse Rate [ Apical] Respiratory Rate Blood Pressure 102/46 O2 Sat by Pulse 92 Oximetry General appearance: Present: no acute distress, well-nourished - EENT Eyes: PERRL, EOM intact ENT: hearing intact, clear oral mucosa Ears: bilateral: normal - Neck Neck: supple, normal ROM - Respiratory Respiratory effort: normal Respiratory: bilateral: CTA - Breasts Breasts: normal - Cardiovascular Rhythm: regular Heart Sounds: Present: S1 & S2. Absent: gallop, rub Extremities: pulses intact, No edema, normal color, Full ROM - Gastrointestinal General gastrointestinal: Present: soft, non-tender, non-distended, normal bowel sounds - Genitourinary Female genitourinary: deferred - Integumentary Integumentary: clear, warm, dry - Musculoskeletal Musculoskeletal: 1, strength equal bilaterally - Neurologic Neurologic: moves all extremities - Psychiatric Psychiatric: memory intact, appropriate mood/affect, intact judgment & insight - Labs CBC & Chem 7: 09/26/17 20:31 09/22/17 07:17 Labs: Abnormal lab results 09/25/17 09/27/17 Range/Units 15:50 09:14 PT 34.0 H (12.2-14.9) Sec. INR 3.09 H (0.87-1.13) Crossmatch See Detail
[2017-09-28] MEDS: D5NS 0.2% 1,000 ML IV SCH ×2 (03:02→12:45)
[2017-09-28] MEDS: OxyCONTIN PO SCH ×3 (06:05→22:46)
[2017-09-28 08:42] LABS: INR 2.34 (0.87-1.13)
[2017-09-28] MEDS: cefTRIAXone 1 GM in NACL 0.9% 20 ML IV SCH ×2 (09:55→22:47)
[2017-09-28] MEDS: FOLVITE PO SCH (09:55)
[2017-09-28] MEDS: THERAGRAN Tab PO SCH (09:55)
[2017-09-28] MEDS: ZITHROMAX PO SCH (09:55)
[2017-09-28] MEDS: TYLENOL PO PRN (12:27)
--- NOTE | 2017-09-28 15:42 | Progress Note ---
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 Sepsis, likely from b/l PNA, POA Febrile illness, likley from sepsis, resolved Sickle cell crisis, monitor H&H Acute b/l PNA likely CA, POA Pulmonary emboli on Coumadin Depression, stable Plan: s/p 1 unit PRBC transfusion, repeat Hb 6.6 today,refuse any further transfusion if plant safety leader not present at bedside Continue aggressive hydration with IV fluids, IV narcotics, Monitor H&H, PT INR, reticulocyte count and LDH Continue to provide supportive care, cont abx Chest x-ray showed b.l infiltrates, negative blood cx refused to be seen by psych or to take any medication for depression disposition: when clears by hematology (if Hb 7 or above) Physical exam: General appearance: Present: mild distress - EENT Eyes: Present: PERRL ENT: hearing intact, clear oral mucosa - Neck Neck: Present: supple, normal ROM - Respiratory Respiratory: bilateral: diminished - Cardiovascular Heart Sounds: Present: S1 & S2. Absent: rub, click - Extremities Extremities: pulses symmetrical, No edema Peripheral Pulses: within normal limits - Abdominal General gastrointestinal: Present: soft, non-tender, non-distended, normal bowel sounds - Integumentary Integumentary: Present: clear, warm, dry - Musculoskeletal Musculoskeletal: gait normal, strength equal bilaterally - Psychiatric Psychiatric: appropriate mood/affect, intact judgment & insight - Neurologic Neurologic: CNII-XII intact, moves all extremities Subjective Date of service: 09/28/17 Interval history: Patient seen and examined. Medical records and medication list reviewed. No acute event overnight noted by the RN. s/p transfusion one unit PRBC Hb still 6.6, does not want any further transfusion Very demanding and wants [employer] Teacher to standby at her bedside during her transfusion she is very paranoid and interrogative about everything, refuses to see psychiatrist Objective - Constitutional Vitals: Vital Signs - 12hr 09/28/17 08:26 Temperature 98.1 F Pulse Rate 83 Respiratory 14 Rate Blood Pressure 92/57 O2 Sat by Pulse 92 Oximetry - Labs CBC & Chem 7: 09/28/17 21:01 09/22/17 07:17 Labs: Abnormal lab results 09/28/17 Range/Units 08:15 PT 27.2 H (12.2-14.9) Sec. INR 2.34 H (0.87-1.13)
[2017-09-28] MEDS: COUMADIN PO SCH (16:34)
--- NOTE | 2017-09-28 21:10 | Progress Note ---
Assessment and Plan - Patient Problems (1) Leukocytosis Current Visit: Yes Status: Acute Plan to address problem: w/up in progress. this is probably due to her PNA. (2) Noncompliance with medication regimen Current Visit: Yes Status: Acute Plan to address problem: i have d/w patient in the office about her gross non compliances. see notes. (3) Sickle cell crisis Current Visit: Yes Status: Acute Plan to address problem: pain control, hydration. (4) Sickle cell anemia Current Visit: Yes Status: Chronic Plan to address problem: monitor labs. see notes. (5) Depressed Current Visit: Yes Status: Acute Plan to address problem: see notes. patient not wanting any intervention. Subjective Date of service: 09/28/17 Interval history: Patient seen/examined, records /labs reviewed, case d/w patient. CXY reveals possible PNA.Patient has lost her IV, and will bneed a picc line as she will needit for very needed tx. Patient seen/examined, resting in bed, labs reviewed, HGB 6.0, and will give 1UPRBC. Patient seen/examined,resting in bed, I have sensed s slight depression, we have talked about it, she will not take any thing at this time.Still awaiting blood fot transfusion. patient seen/examined, resting in bed, she is very paranoid/ depressed. i have spoken to the patient at [facility], and to the family, and to the hospital staff. i had to be in the room before she could take the blood, and abx. i will put her on anti depressant. Patient seen, sleepy, she had refused the 2nd unit of blood, as per the nurse, not allowing lab draws today. Disposition is as per you,with abx for home use. Patient seen/examined, labs reviewed, I had spoken to the primary team earlier today ,to recheck H/H, and if hgb7or above, patient may be d/c home with some oral abx. Patient still does not have any lab draw at this time. I have called the lab, and some one will be coming to draw her for H/H. I have told patient that i can not be here before she can accept blood transfusion. It is just not feasible, and not a realistic expectation or practice., She has got to trust the nursing staff to take good care of her. Objective - Constitutional Vitals: Vital Signs - 12hr 09/28/17 15:19 Temperature 97.8 F Pulse Rate 75 Respiratory 14 Rate Blood Pressure 91/49 O2 Sat by Pulse 95 Oximetry General appearance: Present: mild distress, well-nourished - EENT Eyes: PERRL, EOM intact ENT: hearing intact, clear oral mucosa Ears: bilateral: normal - Neck Neck: supple, normal ROM - Respiratory Respiratory effort: normal Respiratory: bilateral: CTA - Breasts Breasts: deferred - Cardiovascular Rhythm: regular Heart Sounds: Present: S1 & S2. Absent: gallop, rub Extremities: pulses intact, No edema, normal color, Full ROM - Gastrointestinal General gastrointestinal: Present: soft, non-tender, non-distended, normal bowel sounds Rectal Exam: deferred - Genitourinary Female genitourinary: deferred - Integumentary Integumentary: clear, warm, dry - Musculoskeletal Musculoskeletal: 1, strength equal bilaterally - Neurologic Neurologic: moves all extremities - Psychiatric Psychiatric: memory intact, appropriate mood/affect, intact judgment & insight - Labs CBC & Chem 7: 09/26/17 20:31 09/22/17 07:17 Labs: Abnormal lab results 09/25/17 09/28/17 Range/Units 15:50 08:15 PT 27.2 H (12.2-14.9) Sec. INR 2.34 H (0.87-1.13) Crossmatch See Detail
[2017-09-28 21:26] LABS: Hematocrit 20.2 % (30.3-42.9); Hemoglobin 6.6 gm/dl (10.1-14.3)
[2017-09-28] MEDS ORDERED: NACL 0.9% 500 ML 500 ML IV ONE (22:36)
[2017-09-28] MEDS: SENOKOT PO SCH (22:45)
[2017-09-29] MEDS: D5NS 0.2% 1,000 ML IV SCH ×2 (00:26→13:08)
[2017-09-29] MEDS: OxyCONTIN PO SCH ×3 (06:43→22:14)
[2017-09-29 07:44] LABS: INR 2.29 (0.87-1.13)
[2017-09-29 09:11] LABS: Hematocrit 20.5 % (30.3-42.9); Hemoglobin 6.3 gm/dl (10.1-14.3)
[2017-09-29] MEDS: FOLVITE PO SCH (10:21)
[2017-09-29] MEDS: THERAGRAN Tab PO SCH (10:21)
[2017-09-29] MEDS: COLACE PO SCH ×2 (10:21→22:13)
[2017-09-29] MEDS: ZITHROMAX PO SCH (10:21)
[2017-09-29] MEDS: MIRALAX 3350 PO SCH (10:21)
[2017-09-29] MEDS: cefTRIAXone 1 GM in NACL 0.9% 20 ML IV SCH ×2 (10:25→22:14)
--- NOTE | 2017-09-29 14:38 | Progress Note ---
Assessment and Plan Assessment and plan: Sickle cell anemia - Hemoglobin is 6.3 this morning, patient is going to be transfused 1 unit of blood - We will check posttransfusion H&H and will discharge if the level is above 7 - Hematology oncology consult appreciated - Patient asked me to be in the room when she get some blood transfusion and I explained to her that I can't be in the room but i told her i will address any issue happens during blood transfusion Bilateral pneumonia - Patient is on IV Rocephin and azithromycin History of blood clot - Patient is on Coumadin Disposition - Patient to be discharged after hemoglobin is above 7. History Interval history: Patient was seen and evaluated this morning, patient refused blood transfusion but later agreed and she doesn't want students to be in the room, I have recommended continued with the nurse and she is going to give her blood. No fever, chills, cough, or chest pain. Hospitalist Physical - Physical exam Narrative exam: Not in cardiopulmonary distress. The patient appeared well nourished and normally developed. Vital signs as documented. Head exam is unremarkable. No scleral icterus . Neck is without jugular venous distension, thyromegaly, or carotid bruits. Lungs are clear to auscultation. Cardiac exam reveals regular rate and Rhythm. First and second heart sounds normal. No murmurs, rubs or gallops. Abdominal exam reveals normal bowel sounds, no masses, no organomegaly and no aortic enlargement. Extremities are nonedematous and both femoral and pedal pulses are normal. FISHER TRAWL NET: Alert and oriented 3. No focal weakness. - Constitutional Vitals: Temp Pulse Resp BP Pulse Ox 98.8 F 83 16 85/49 94 09/29/17 08:01 09/29/17 08:01 09/29/17 08:01 09/29/17 08:01 09/29/17 08:01 General appearance: Present: mild distress, well-nourished Results - Labs CBC & Chem 7: 09/29/17 07:05 09/22/17 07:17 Labs: Laboratory Last Values WBC 15.7 K/mm3 (4.5-11.0) H 09/24/17 11:10 RBC 2.27 M/mm3 (3.65-5.03) L 09/24/17 11:10 Hgb 6.3 gm/dl (10.1-14.3) L 09/29/17 07:05 Hct 20.5 % (30.3-42.9) L 09/29/17 07:05 MCV 83 fl (79-97) 09/24/17 11:10 MCH 27 pg (28-32) L 09/24/17 11:10 MCHC 32 % (30-34) 09/24/17 11:10 RDW 18.1 % (13.2-15.2) H 09/24/17 11:10 Plt Count 356 K/mm3 (140-440) 09/24/17 11:10 Add Manual Diff Complete 09/24/17 11:10 Total Counted 100 09/24/17 11:10 Seg Neuts % (Manual) 88.0 % (40.0-70.0) H 09/24/17 11:10 Band Neutrophils % 0 % 09/24/17 11:10 Lymphocytes % (Manual) 2.0 % (13.4-35.0) L 09/24/17 11:10 Reactive Lymphs % (Man) 0 % 09/24/17 11:10 Monocytes % (Manual) 9.0 % (0.0-7.3) H 09/24/17 11:10 Eosinophils % (Manual) 0 % (0.0-4.3) 09/24/17 11:10 Basophils % (Manual) 1.0 % (0.0-1.8) 09/24/17 11:10 Metamyelocytes % 0 % 09/24/17 11:10 Myelocytes % 0 % 09/24/17 11:10 Promyelocytes % 0 % 09/24/17 11:10 Blast Cells % 0 % 09/24/17 11:10 Nucleated RBC % 9.0 % (0.0-0.9) H 09/24/17 11:10 Seg Neutrophils # Man 13.6 K/mm3 (1.8-7.7) H 09/24/17 11:10 Band Neutrophils # 0.0 K/mm3 09/24/17 11:10 Lymphocytes # (Manual) 0.3 K/mm3 (1.2-5.4) L 09/24/17 11:10 Abs React Lymphs (Man) 0.0 K/mm3 09/24/17 11:10 Monocytes # (Manual) 1.4 K/mm3 (0.0-0.8) H 09/24/17 11:10 Eosinophils # (Manual) 0.0 K/mm3 (0.0-0.4) 09/24/17 11:10 Basophils # (Manual) 0.2 K/mm3 (0.0-0.1) H 09/24/17 11:10 Metamyelocytes # 0.0 K/mm3 09/24/17 11:10 Myelocytes # 0.0 K/mm3 09/24/17 11:10 Promyelocytes # 0.0 K/mm3 09/24/17 11:10 Blast Cells # 0.0 K/mm3 09/24/17 11:10 WBC Morphology Not Reportable 09/24/17 11:10 Hypersegmented Neuts Not Reportable 09/24/17 11:10 Hyposegmented Neuts Not Reportable 09/24/17 11:10 Hypogranular Neuts Not Reportable 09/24/17 11:10 Smudge Cells Not Reportable 09/24/17 11:10 Toxic Granulation Not Reportable 09/24/17 11:10 Toxic Vacuolation Not Reportable 09/24/17 11:10 Dohle Bodies Not Reportable 09/24/17 11:10 Pelger-Huet Anomaly Not Reportable 09/24/17 11:10 Josemanuel Rods Not Reportable 09/24/17 11:10 Platelet Estimate Cons 09/24/17 11:10 Clumped Platelets Not Reportable 09/24/17 11:10 Plt Clumps, EDTA Not Reportable 09/24/17 11:10 Large Platelets Not Reportable 09/24/17 11:10 Giant Platelets Not Reportable 09/24/17 11:10 Platelet Satelliting Not Reportable 09/24/17 11:10 Plt Morphology Comment Not Reportable 09/24/17 11:10 RBC Morphology Not Reportable 09/24/17 11:10 Dimorphic RBCs Not Reportable 09/24/17 11:10 Polychromasia 1+ 09/24/17 11:10 Hypochromasia Not Reportable 09/24/17 11:10 Poikilocytosis 2+ 09/24/17 11:10 Anisocytosis 2+ 09/24/17 11:10 Microcytosis Not Reportable 09/24/17 11:10 Macrocytosis Not Reportable 09/24/17 11:10 Spherocytes Not Reportable 09/24/17 11:10 Pappenheimer Bodies Not Reportable 09/24/17 11:10 Sickle Cells Few 09/24/17 11:10 Target Cells 2+ 09/24/17 11:10 Tear Drop Cells Few 09/24/17 11:10 Ovalocytes 1+ 09/24/17 11:10 Stomatocytes Few 09/24/17 11:10 Helmet Cells Not Reportable 09/24/17 11:10 [place] Bodies Not Reportable 09/24/17 11:10 [place] Rings Not Reportable 09/24/17 11:10 Wilma Cells Not Reportable 09/24/17 11:10 Bite Cells Not Reportable 09/24/17 11:10 Crenated Cell Not Reportable 09/24/17 11:10 Elliptocytes 1+ 09/24/17 11:10 Acanthocytes (Spur) Not Reportable 09/24/17 11:10 Rouleaux Not Reportable 09/24/17 11:10 Hemoglobin C Crystals Not Reportable 09/24/17 11:10 Schistocytes Not Reportable 09/24/17 11:10 Malaria parasites Not Reportable 09/24/17 11:10 Percent Retic 8.51 % (0.78-2.58) H 09/24/17 11:10 Nikunj Bodies Not Reportable 09/24/17 11:10 Hem Pathologist Commnt No 09/24/17 11:10 PT 26.7 Sec. (12.2-14.9) H 09/29/17 07:05 INR 2.29 (0.87-1.13) H 09/29/17 07:05 APTT 30.4 Sec. (24.2-36.6) 09/21/17 23:51 Sodium 134 mmol/L (137-145) L 09/22/17 07:17 Potassium 4.2 mmol/L (3.6-5.0) 09/22/17 07:17 Chloride 98.4 mmol/L (98-107) 09/22/17 07:17 Carbon Dioxide 21 mmol/L (22-30) L 09/22/17 07:17 Anion Gap 19 mmol/L 09/22/17 07:17 BUN 11 mg/dL (7-17) 09/22/17 07:17 Creatinine 0.8 mg/dL (0.7-1.2) 09/22/17 07:17 Estimated GFR > 60 ml/min 09/22/17 07:17 BUN/Creatinine Ratio 14 % 09/22/17 07:17 Glucose 113 mg/dL (65-100) H 09/22/17 07:17 Calcium 10.0 mg/dL (8.4-10.2) 09/22/17 07:17 Iron 45 ug/dL (37-170) 09/26/17 20:31 Ferritin 7441.0 ng/mL (13.0-400.0) H 09/26/17 20:31 Lactate Dehydrogenase 487 units/L (91-180) H 09/24/17 11:10 Urine Color Yellow (Yellow) 09/26/17 15:30 Urine Turbidity Clear (Clear) 09/26/17 15:30 Urine pH 6.0 (5.0-7.0) 09/26/17 15:30 Ur Specific Crump 1.005 (1.003-1.030) 09/26/17 15:30 Urine Protein <15 mg/dl mg/dL (Negative) 09/26/17 15:30 Urine Glucose (UA) Neg mg/dL (Negative) 09/26/17 15:30 Urine Ketones Neg mg/dL (Negative) 09/26/17 15:30 Urine Blood Neg (Negative) 09/26/17 15:30 Urine Nitrite Neg (Negative) 09/26/17 15:30 Urine Bilirubin Neg (Negative) 09/26/17 15:30 Urine Urobilinogen < 2.0 mg/dL (<2.0) 09/26/17 15:30 Ur Leukocyte Esterase Neg (Negative) 09/26/17 15:30 Urine WBC (Auto) 1.0 /HPF (0.0-6.0) 09/26/17 15:30 Urine RBC (Auto) 2.0 /HPF (0.0-6.0) 09/26/17 15:30 U Epithel Cells (Auto) < 1.0 /HPF (0-13.0) 09/26/17 15:30 Blood Type O POSITIVE 09/29/17 07:05 Antibody Screen Negative 09/29/17 07:05 Crossmatch See Detail 09/29/17 07:05
[2017-09-29] MEDS ORDERED: NACL 0.9% 500 ML 500 ML IV NR (16:54)
[2017-09-29] MEDS: COUMADIN PO SCH (17:30)
--- NOTE | 2017-09-29 20:25 | Progress Note ---
Assessment and Plan - Patient Problems (1) Leukocytosis Current Visit: Yes Status: Acute Plan to address problem: w/up in progress. this is probably due to her PNA. (2) Noncompliance with medication regimen Current Visit: Yes Status: Acute Plan to address problem: i have d/w patient in the office about her gross non compliances. see notes. (3) Sickle cell crisis Current Visit: Yes Status: Acute Plan to address problem: pain control, hydration. (4) Sickle cell anemia Current Visit: Yes Status: Chronic Plan to address problem: monitor labs. see notes. she is s/p blood transfusion. (5) Depressed Current Visit: Yes Status: Acute Plan to address problem: see notes. patient not wanting any intervention. Subjective Date of service: 09/29/17 Interval history: Patient seen/examined, records /labs reviewed, case d/w patient. CXY reveals possible PNA.Patient has lost her IV, and will bneed a picc line as she will needit for very needed tx. Patient seen/examined, resting in bed, labs reviewed, HGB 6.0, and will give 1UPRBC. Patient seen/examined,resting in bed, I have sensed s slight depression, we have talked about it, she will not take any thing at this time.Still awaiting blood fot transfusion. patient seen/examined, resting in bed, she is very paranoid/ depressed. i have spoken to the patient at [facility], and to the family, and to the hospital staff. i had to be in the room before she could take the blood, and abx. i will put her on anti depressant. Patient seen, sleepy, she had refused the 2nd unit of blood, as per the nurse, not allowing lab draws today. Disposition is as per you,with abx for home use. Patient seen/examined, labs reviewed, I had spoken to the primary team earlier today ,to recheck H/H, and if hgb7or above, patient may be d/c home with some oral abx. Patient still does not have any lab draw at this time. I have called the lab, and some one will be coming to draw her for H/H. I have told patient that i can not be here before she can accept blood transfusion. It is just not feasible, and not a realistic expectation or practice., She has got to trust the nursing staff to take good care of her. Patient seen/examined, resting in bed, she decided to get the blood today. once stable, with the PNA, and physically, disposition is as per you. Objective - Constitutional Vitals: Vital Signs - 12hr 09/29/17 09/29/17 09/29/17 16:45 16:58 17:13 Temperature 98.5 F 99.9 F H 99.0 F Pulse Rate 70 66 76 Respiratory 18 18 18 Rate Blood Pressure 103/52 93/48 107/61 09/29/17 09/29/17 09/29/17 17:43 18:13 18:43 Temperature 98.9 F 98.9 F 99.8 F H Pulse Rate 75 76 66 Respiratory 18 18 18 Rate Blood Pressure 116/64 103/65 106/42 09/29/17 19:10 Temperature 98.9 F Pulse Rate 75 Respiratory 18 Rate Blood Pressure 106/45 General appearance: Present: mild distress, well-nourished - EENT Eyes: PERRL, EOM intact ENT: hearing intact, clear oral mucosa Ears: bilateral: normal - Neck Neck: supple, normal ROM - Respiratory Respiratory effort: normal Respiratory: bilateral: CTA - Breasts Breasts: deferred - Cardiovascular Rhythm: regular Heart Sounds: Present: S1 & S2. Absent: gallop, rub Extremities: pulses intact, No edema, normal color, Full ROM - Gastrointestinal General gastrointestinal: Present: soft, non-tender, non-distended, normal bowel sounds Rectal Exam: deferred - Genitourinary Female genitourinary: deferred - Integumentary Integumentary: clear, warm, dry - Musculoskeletal Musculoskeletal: 1, strength equal bilaterally - Neurologic Neurologic: moves all extremities - Psychiatric Psychiatric: memory intact, appropriate mood/affect, intact judgment & insight - Labs CBC & Chem 7: 09/29/17 07:05 09/22/17 07:17 Labs: Abnormal lab results 09/28/17 09/29/17 09/29/17 Range/Units 21:01 07:05 07:05 Hgb 6.6 L (10.1-14.3) gm/dl Hct 20.2 L (30.3-42.9) % PT 26.7 H (12.2-14.9) Sec. INR 2.29 H (0.87-1.13) Crossmatch See Detail 09/29/17 Range/Units 07:05 Hgb 6.3 L (10.1-14.3) gm/dl Hct 20.5 L (30.3-42.9) % PT (12.2-14.9) Sec. INR (0.87-1.13) Crossmatch
[2017-09-29] MEDS: SENOKOT PO SCH (22:13)
[2017-09-30] MEDS: D5NS 0.2% 1,000 ML IV SCH (02:14)
[2017-09-30] MEDS: OxyCONTIN PO SCH (06:22)
[2017-09-30 09:27] LABS: Hematocrit 28.8 % (30.3-42.9); Mean Corpuscular HGB Conc 31 % (30-34); Mean Corpuscular Hemoglobin 26 pg (28-32); Mean Corpuscular Volume 84 fl (79-97); Platelet Count 704 K/mm3 (140-440); Red Blood Count 3.45 M/mm3 (3.65-5.03); Red Cell Distribution Width 18.2 % (13.2-15.2)
[2017-09-30 09:47] VITALS: BP 150/106
[2017-09-30 09:53] LABS: INR 2.44 (0.87-1.13)
[2017-09-30] MEDS: THERAGRAN Tab PO SCH (10:40)
[2017-09-30] MEDS: MIRALAX 3350 PO SCH (10:40)
[2017-09-30] MEDS: ZITHROMAX PO SCH (10:40)
[2017-09-30] MEDS: cefTRIAXone 1 GM in NACL 0.9% 20 ML IV SCH (10:40)
[2017-09-30] MEDS: FOLVITE PO SCH (10:40)
[2017-09-30] MEDS: COLACE PO SCH (10:40)
--- NOTE | 2017-09-30 11:09 | Discharge Summary ---
Providers - Providers Date of Admission: 09/21/17 21:59 Attending physician: LAMIN NOGUERA MD 09/21/17 20:29 Consult to Physician [CONS] Urgent Comment: Consulting Provider: ISHAAN VELÁZQUEZ Physician Instructions: Reason For Exam: sickle cell crise, leukocystosis 09/24/17 09:39 Midline [Consult to PICC Line RN] [CONS] Routine Reason For Exam: No IV access. Type Line:: Midline Primary care physician: ASSISTANT PROFESSOR OF ENGLISH Hospitalization Reason for admission: Bilateral pneumonia, sickle cell anemia Condition: Stable Disposition: DC-01 TO HOME OR SELFCARE Time spent for discharge: 31 minutes - Discharge Diagnoses (1) Pneumonia Status: Acute Qualifiers: Pneumonia type: due to unspecified organism Laterality: bilateral Lung location: lower lobe of lung Qualified Code(s): J18.1 - Lobar pneumonia, unspecified organism (2) Sickle cell crisis Status: Acute (3) Sickle cell anemia Status: Chronic Core Measure Documentation - Palliative Care Palliative Care/ Comfort Measures: Not Applicable - Core Measures Any of the following diagnoses?: none Exam - Physical Exam Narrative exam: Not in cardiopulmonary distress. The patient appeared well nourished and normally developed. Vital signs as documented. Head exam is unremarkable. No scleral icterus . Neck is without jugular venous distension, thyromegaly, or carotid bruits. Lungs are clear to auscultation. Cardiac exam reveals regular rate and Rhythm. First and second heart sounds normal. No murmurs, rubs or gallops. Abdominal exam reveals normal bowel sounds, no masses, no organomegaly and no aortic enlargement. Extremities are nonedematous and both femoral and pedal pulses are normal. CLOTHING MANAGER: Alert and oriented 3. No focal weakness. - Constitutional Vitals: Temp Pulse Resp BP Pulse Ox 98.5 F 90 18 150/106 97 09/30/17 08:00 09/30/17 08:00 09/30/17 08:00 09/30/17 08:00 09/29/17 21:02 Plan Activity: no restrictions Weight Bearing Status: Full Weight Bearing Diet: low cholesterol Additional Instructions: Follow with Dr Velázquez in 1 week Forms: Warfarin Discharge Instruction Prescriptions: guaiFENesin/DEXTROMETHORPHAN [Robitussin Cough-Chest Dm Liq] 10 ml PO Q4H PRN # 1 bottle PRN Reason: Cough Levofloxacin [Levaquin] 750 mg PO QDAY #7 tablet
== END 2017-09-30 12:48 | disposition home or self-care (01) | DRG 871 ==
LOC: ED 09:53 → 3A 21:59
PROVIDERS: ADMIT Internal Medicine; ATTEND Internal Medicine
PROC: 30233N1 Transfusion of Nonautologous Red Blood Cells into Peripheral Vein, Percutaneous Approach (ICD-10-PCS; principal; 2017-09-26)
DX: A41.9 Sepsis, unspecified organism (principal); D57.00 Hb-SS disease with crisis, unspecified; J18.9 Pneumonia, unspecified organism; Z53.29 Procedure and treatment not carried out because of patient's decision for other reasons; F32.9 Major depressive disorder, single episode, unspecified; Z86.711 Personal history of pulmonary embolism; Z79.01 Long term (current) use of anticoagulants; Z90.49 Acquired absence of other specified parts of digestive tract; Z98.51 Tubal ligation status; Z89.9 Acquired absence of limb, unspecified; Z83.2 Family history of diseases of the blood and blood-forming organs and certain disorders involving the immune mechanism; Z88.8 Allergy status to other drugs, medicaments and biological substances; Z91.14 Patient's other noncompliance with medication regimen
CPT/HCPCS: 36415; 71045; 80048; 81001; 82728; 83540; 83615; 85007; 85014; 85018; 85025; 85027; 85045; 85610; 85660; 85730; 86850; 86900; 86901; 86920; 87040; 96374; 96375; J0456; J0696; J1170; J1885; J2405; J7040; J7050; P9016

== ENCOUNTER 2017-10-16 14:13 | Outpatient (CLI) | payer MEDICARE ==
--- NOTE | 2017-10-16 15:24 | XRay Report ---
Chest 2 views: Compared to 09/23/17. History: Cough/post pneumonia treatment. Findings: Normal cardiomediastinal silhouette the trachea is midline. No consolidation, pneumothorax or pleural effusion. Impression: No acute cardiopulmonary findings.
== END 2017-10-16 14:14 | disposition home or self-care (01) ==
LOC: XRAY 14:13
PROVIDERS: ATTEND Internal Medicine Hematology & Oncology
DX: R05 Cough (principal); Z87.01 Personal history of pneumonia (recurrent)
CPT/HCPCS: 71046

== ENCOUNTER 2017-10-19 12:10 | Outpatient (CLI) | payer MEDICARE ==
--- NOTE | 2017-10-21 12:17 | Mammography Report ---
Screening mammogram: Routine views are compared to prior exams dating back to 2015. There is a heterogeneously dense and diffusely distributed fibroglandular pattern which is generally unchanged from prior exams. There is a circumscribed nodule however in the upper-outer right breast which has shown interval enlargement since her prior exam in 2016. CAD used. Impression: Interval enlargement of circumscribed right nodule. Recommendation: Right breast ultrasound. If this is not a simple cyst additional compression imaging is required. BI-RADS CATEGORY: 0 = Needs additional imaging evaluation ACR BI-RADS MAMMOGRAPHIC CODES: 0 = Needs additional imaging evaluation; 1 = Negative; 2 = Benign; 3 = Probably benign; 4 = Suspicious; 5 = Malignant; 6 = Known biopsy-proven malignancy COMMENT: 1. Dense breast tissue, i.e., adenosis, fibrocystic changes, etc., may obscure an underlying neoplasm. 2. Approximately 10% of cancers are not detected with mammography. 3. A negative mammography report should not delay biopsy if a clinically suspicious mass is present.
== END 2017-10-19 12:11 | disposition home or self-care (01) ==
LOC: MAMMO 12:10
PROVIDERS: ATTEND Internal Medicine Hematology & Oncology
DX: Z12.31 Encounter for screening mammogram for malignant neoplasm of breast (principal)
CPT/HCPCS: 77067

== ENCOUNTER 2018-01-07 08:56 | Outpatient (CLI) | payer MEDICARE ==
--- NOTE | 2018-01-07 10:28 | Ultrasound Report ---
RIGHT BREAST ULTRASOUND: 01/07/18 08:56:00 CLINICAL: A circumscribed nodule on recent mammogram. COMPARISON: 10/19/17 screening mammogram. FINDINGS: Ultrasound of the right breast(including all four quadrants and the retroareolar area) was performed and demonstrated no mass, cyst or suspicious shadowing. A benign left axillary lymph node correlates with the nodule described on the recent mammogram. It measures 2.1 x 0.6 x 0.6 cm and has benign morphology with a large volume of central fat. IMPRESSION: A benign right axillary lymph node and otherwise negative right breast ultrasound. BI-RADS 2 - - Benign RECOMMENDATION: Routine mammographic screening.
== END 2018-01-07 08:57 | disposition home or self-care (01) ==
LOC: US 08:56
PROVIDERS: ATTEND Internal Medicine Hematology & Oncology
DX: R92.8 Other abnormal and inconclusive findings on diagnostic imaging of breast (principal); D64.9 Anemia, unspecified; F32.9 Major depressive disorder, single episode, unspecified; I10 Essential (primary) hypertension; E78.00 Pure hypercholesterolemia, unspecified; Z88.8 Allergy status to other drugs, medicaments and biological substances